=== PATIENT | male | born 1995 | race Caucasian/White ===

== ENCOUNTER 2017-06-11 15:54 | Emergency (ER) | payer OTHER ==
[~2017-06-11] VITALS: Ht 177.8 cm; Wt 65.8 kg
[~2017-06-11 15:54] MED LIST: ALEVE220 M1 PO; DOXYCYCLINE HY100 MG PO; NORCO 5-325 TA1 EACH PO; PERCOCET 5-3251 EACH PO
[2017-06-11] MEDS ORDERED: BUSPIRONE HCL15 MG PO (16:09)
[2017-06-11] MEDS ORDERED: NORCO 5-325 TA1 EACH PO (16:57)
[2017-06-11] MEDS ORDERED: AUGMENTIN 875-1 EACH PO (16:57)
== END 2017-06-11 17:33 | disposition home or self-care (01) ==
LOC: ED 15:54
PROC: 0HQDXZZ Repair Right Lower Arm Skin, External Approach (ICD-10-PCS; principal; 2017-06-11)
DX: S51.811A Laceration without foreign body of right forearm, initial encounter (principal); F17.200 Nicotine dependence, unspecified, uncomplicated; Z79.899 Other long term (current) drug therapy; W25.XXXA Contact with sharp glass, initial encounter; Z88.5 Allergy status to narcotic agent; Z90.81 Acquired absence of spleen
CPT/HCPCS: 12004; 99283

== ENCOUNTER 2017-06-12 11:00 | Emergency (ER) | payer OTHER ==
[~2017-06-12] VITALS: Ht 177.8 cm; Wt 65.8 kg
[~2017-06-12 11:00] MED LIST changes: +AUGMENTIN 875-1 EACH PO; +BUSPIRONE HCL15 MG PO
== END 2017-06-12 11:24 | disposition home or self-care (01) ==
LOC: ED 11:00
DX: Z00.8 Encounter for other general examination (principal)

== ENCOUNTER 2017-06-13 17:36 | Emergency (ER) | payer OTHER | END 2017-06-13 20:00 | disposition short-term general hospital (02) | LOC: ED 17:36 | DX: S06.5X0A Traumatic subdural hemorrhage without loss of consciousness, initial encounter (principal); S00.01XA Abrasion of scalp, initial encounter; F17.200 Nicotine dependence, unspecified, uncomplicated; Z88.5 Allergy status to narcotic agent; Z79.899 Other long term (current) drug therapy; V89.2XXA Person injured in unspecified motor-vehicle accident, traffic, initial encounter | CPT/HCPCS: 70450; 71010; 73000; 80053; 81001; 85025; 85610; 99285; G0480 ==

== ENCOUNTER 2018-05-09 13:37 | Emergency (ER) | payer BC ==
[~2018-05-09] VITALS: Ht 177.8 cm; Wt 59.4 kg
== END 2018-05-09 16:30 | disposition home or self-care (01) ==
LOC: ED 13:37
DX: S09.90XA Unspecified injury of head, initial encounter (principal); S00.81XA Abrasion of other part of head, initial encounter; F17.200 Nicotine dependence, unspecified, uncomplicated; Z88.5 Allergy status to narcotic agent; Y04.2XXA Assault by strike against or bumped into by another person, initial encounter
CPT/HCPCS: 70450; 99284

== ENCOUNTER 2018-06-02 01:58 | Emergency (ER) | payer BC ==
[~2018-06-02] VITALS: Ht 177.8 cm; Wt 65.8 kg
== END 2018-06-02 02:33 | disposition home or self-care (01) ==
LOC: ED 01:58
DX: S61.211A Laceration without foreign body of left index finger without damage to nail, initial encounter (principal); F17.200 Nicotine dependence, unspecified, uncomplicated; Z79.899 Other long term (current) drug therapy; W26.0XXA Contact with knife, initial encounter
CPT/HCPCS: 99282

== ENCOUNTER 2018-08-14 12:52 | Emergency (ER) | payer BC ==
[~2018-08-14] VITALS: Ht 177.8 cm; Wt 65.8 kg
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
--- OUTSIDE RECORDS SUMMARY | ~2018-08-14 | XMS | Clinical Summary ---
Demographics + + + | Address | [address] | | | [place] [address] | + + + | Home Phone | | + + + | Preferred Language | Unknown | + + + | Marital Status | Single | + + + | Buddhism Affiliation | Unknown | + + + | Race | Unknown | + + + | Ethnic Group | Unknown | + + + Author + + + | Author | [facility] | + + + | Organization | [facility] | + + + | Address [...] Team Providers + +------+ + | Care Book Packer Name | Role | Phone | + [...] + | [employer] | [employer] | [id number] | | | | | | WORK | | | | | + +--------+ +------+-------+ + | MAGDALENA - S - | TRICAR | [id number] | | | [address] [address] | | | [place] | | | | [place], [place] | | | LIFE | | | | [phone] | + +--------+ +------+-------+ + + +--------+ [...] Y | al/Fam | | 1994 | [phone] | [place] | | | remedios | | | [phone] | + +--------+ +--------+ + +
== END 2018-08-14 14:13 | disposition home or self-care (01) ==
LOC: ED 12:52
PROC: 0HQFXZZ Repair Right Hand Skin, External Approach (ICD-10-PCS; principal; 2018-08-14)
DX: S61.212A Laceration without foreign body of right middle finger without damage to nail, initial encounter (principal); W22.8XXA Striking against or struck by other objects, initial encounter; F17.200 Nicotine dependence, unspecified, uncomplicated; Z88.5 Allergy status to narcotic agent
CPT/HCPCS: 12001; 99282

== ENCOUNTER 2018-12-26 12:58 | Emergency (ER) | payer OTHER ==
[~2018-12-26] VITALS: Ht 177.8 cm; Wt 63.5 kg
== END 2018-12-26 14:39 | disposition home or self-care (01) ==
LOC: ED 12:58
DX: S00.03XA Contusion of scalp, initial encounter (principal); F17.200 Nicotine dependence, unspecified, uncomplicated; Z88.5 Allergy status to narcotic agent; V49.9XXA Car occupant (driver) (passenger) injured in unspecified traffic accident, initial encounter
CPT/HCPCS: 70450; 80053; 83605; 85025; 96374; 99284-25; G0480; J2405

== ENCOUNTER 2020-03-17 15:33 | Emergency (ER) | payer OTHER ==
[~2020-03-17] VITALS: Ht 180.3 cm; Wt 63.5 kg
== END 2020-03-18 10:06 | disposition home or self-care (01) ==
LOC: ED 15:33
DX: S51.812A Laceration without foreign body of left forearm, initial encounter (principal); F15.129 Other stimulant abuse with intoxication, unspecified; R45.851 Suicidal ideations; Y33.XXXA Other specified events, undetermined intent, initial encounter
CPT/HCPCS: 12004; 70450; 71045; 72125; 72128; 72131; 72170; 72192; 80053; 81001; 85025; 99285-25; G0480; J2405; J3010; J7030; J7040

== ENCOUNTER 2022-02-02 10:49 | Emergency (ER) | payer OTHER ==
[~2022-02-02] VITALS: Ht 180.3 cm; Wt 60.3 kg
[~2022-02-02 10:49] MED LIST changes: +BUPRENORPHINE-1 EACH SL; +BUPROPION XL300 MG PO; +METHYLPHENIDATE10 MG PO
--- OUTSIDE RECORDS SUMMARY | 2022-02-02 10:52 | XMS ---
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 Care Guidelines exist for the following facilities: [facility] ( 03/20/2020 ) Maddie VISIT COUNT (12 MO.) [address] [facility] TOTAL 2 NOTE: Visits indicate total known visits. ED/UCC VISIT TRACKING (12 MO.) 02/02/2022 10:50 [facility] [place] TYPE: Emergency COMPLAINT: - LT RIB PAIN/ALTERCATION 10/04/2021 08:48 [facility] [place] TYPE: Emergency COMPLAINT: - ALTERED MENTAL STATUS INPATIENT VISIT TRACKING (12 MO.) 10/04/2021 08:49 [facility] TYPE: Observation COMPLAINT: - ACUTE TOXIC ENCEPHALOPATHY DIAGNOSES: - Poisoning by benzodiazepines, intentional self-harm, initial encounter - Poisoning by methadone, intentional self-harm, initial encounter - OTHER TOXIC ENCEPHALOPATHY - Nicotine dependence, cigarettes, uncomplicated - Allergy status to narcotic agent [email or web address]
== END 2022-02-02 11:28 | disposition home or self-care (01) ==
LOC: ED 10:49
DX: R51.9 Headache, unspecified (principal); M79.603 Pain in arm, unspecified; Y09 Assault by unspecified means; F17.200 Nicotine dependence, unspecified, uncomplicated; Z88.5 Allergy status to narcotic agent; Z79.899 Other long term (current) drug therapy
CPT/HCPCS: 99284

== ENCOUNTER 2022-02-04 15:27 | Emergency (ER) | payer OTHER ==
[~2022-02-04] VITALS: Ht 180.3 cm; Wt 64.5 kg
--- OUTSIDE RECORDS SUMMARY | 2022-02-04 15:30 | XMS ---
PreManage Notification: DELONTE SOTO Security Copy Director Events No recent Security Events currently on file CRITERIA MET - [facility] - 2 Visits in 30 Days - [facility] CARE PROVIDERS There are no care providers on record at this time. Care Guidelines exist for the following facilities: [facility] ( 03/20/2020 ) Maddie VISIT COUNT (12 MO.) 3 [facility] TOTAL 3 NOTE: Visits indicate total known visits. ED/UCC VISIT TRACKING (12 MO.) 02/04/2022 15:28 [facility] TYPE: Emergency COMPLAINT: - HEAD PAIN/INJURY 02/02/2022 10:50 [facility] TYPE: Emergency [...] uncomplicated - Allergy status to narcotic agent [email or web address]
[2022-02-04] MEDS ORDERED: AMOXICILLIN500 MG PO (18:20)
== END 2022-02-04 18:50 | disposition home or self-care (01) ==
LOC: ED 15:27
DX: J32.9 Chronic sinusitis, unspecified (principal); F07.81 Postconcussional syndrome; F15.10 Other stimulant abuse, uncomplicated; F17.200 Nicotine dependence, unspecified, uncomplicated; Z79.899 Other long term (current) drug therapy; Z88.5 Allergy status to narcotic agent
CPT/HCPCS: 70450; 72125; 99284-25

== ENCOUNTER 2022-02-12 09:45 | Emergency (ER) | payer OTHER ==
[~2022-02-12] VITALS: Ht 180.3 cm; Wt 64.4 kg
[~2022-02-12 09:45] MED LIST changes: +AMOXICILLIN500 MG PO
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
--- NOTE | 2022-02-13 11:43 | EKG ---
[facility] [address] [place] [address] Signed Normal sinus rhythm Normal ECG When compared with ECG of 04-OCT-2021 09:29, QT has lengthened Confirmed by LENORE BAJWA MD ([id number]) on 02/13/2022 11:43:39 AM Electronically Signed By: LENORE BAJWA MD 02/13/22 1143 PATIENT NAME: DELONTE SOTO Electrocardiogram DATE OF : [birth year] PHYSICIAN: LENORE BAJWA MD REPORT #: [id number] REPORT IS CONFIDENTIAL AND NOT TO BE RELEASED WITHOUT AUTHORIZATION
== END 2022-02-13 10:34 | disposition home or self-care (01) ==
LOC: ED 09:45
DX: R41.82 Altered mental status, unspecified (principal); S00.83XA Contusion of other part of head, initial encounter; F19.90 Other psychoactive substance use, unspecified, uncomplicated; F17.200 Nicotine dependence, unspecified, uncomplicated; Z88.5 Allergy status to narcotic agent; Z79.899 Other long term (current) drug therapy; W19.XXXA Unspecified fall, initial encounter; W22.8XXA Striking against or struck by other objects, initial encounter; Y92.240 Courthouse as the place of occurrence of the external cause
CPT/HCPCS: 36415; 70450; 70486; 72125; 80053; 81001; 85025; 93005; 93010; 99285-25; J7030

== ENCOUNTER 2023-06-29 18:57 | Emergency (ER) | payer OTHER | END 2023-06-29 21:11 | disposition home or self-care (01) | LOC: ED 18:57 | DX: R56.9 Unspecified convulsions (principal); F17.200 Nicotine dependence, unspecified, uncomplicated; Z88.5 Allergy status to narcotic agent; Z79.899 Other long term (current) drug therapy ==

== ENCOUNTER 2023-09-23 21:18 | Emergency (ER) | payer OTHER ==
[~2023-09-23] VITALS: Ht 180.3 cm; Wt 68.0 kg
[~2023-09-23 21:18] MED LIST changes: +ESTRADIOL20 MG/1 ML IM; +KEPPRA500 MG PO; +SPIRONOLACTONE100 MG NG; +VYVANSE10 MG PO; +VYVANSE40 MG PO
--- OUTSIDE RECORDS SUMMARY | 2023-09-23 21:20 | XMS ---
PreManage Notification: DELONTE SOTO Security Pig Machine Crane Operator Events No recent Security Events currently on file CRITERIA MET - [facility] CARE PROVIDERS -, [place] Dentist: [facility] PHONE: [phone] -, [facility] Dentist: Manager Nursing [facility] PHONE: [phone] Care Guidelines exist for the following facilities: [facility] ( 03/20/2020 ) Maddie VISIT COUNT (12 MO.) 2 [facility] TOTAL 2 NOTE: Visits indicate total known visits. ED/UCC VISIT TRACKING (12 MO.) 09/23/2023 21:19 [facility] TYPE: Emergency COMPLAINT: - SEIZURE 06/29/2023 18:57 [facility] TYPE: Emergency COMPLAINT: - SEIZURE DIAGNOSES: - Allergy status to narcotic agent - Nicotine dependence, unspecified, uncomplicated - Other chcf (current) drug therapy - Unspecified convulsions INPATIENT VISIT TRACKING (12 MO.) No inpatient visits to display in this time frame [email or web address]
[2023-09-23 21:36] LABS: BASOPHILS 0.8 % (0-2); EOSINOPHILS 0.7 % (0-6); HEMATOCRIT 40.4 % (35.0-50.0); HEMOGLOBIN 13.5 g/dL (12.0-18.0); LYMPHOCYTES 24.2 % (24-44); MCH 31.9 (27-36); MCHC 33.3 g/dl (30-36); MCV 95.8 fl (81-99); NEUTROPHILS 63.3 % (39-80); PLATELET COUNT 356 K/uL (140-440); RBC 4.22 M/ul (4.3-5.7); RDW 13.1 (10.5-15.0)
[2023-09-23 21:51] LABS: ALBUMIN 3.9 g/dL (3.4-5.0); ALBUMIN/GLOBULIN RATIO 1.15 (1.1-2.4); ALCOHOL, MEDICAL <3 ng/dL (<3); ALKALINE PHOSPHATASE 49 U/L (46-116); ALT (SGPT) 14 U/L (14-59); ANION GAP 13.1 (7-21); AST (SGOT) 13 U/L (15-37); BILIRUBIN, TOTAL 0.6 ng/dL (0.2-1.0); BUN/CREATININE RATIO 11.95 (6.0-28.6); CALCIUM 8.5 mg/dL (8.5-10.1); CARBON DIOXIDE 25 mmol/L (21-32); CHLORIDE 102 mmol/L (98-107); CREATININE, SERUM 0.92 mg/dL (0.70-1.30); GLOMERULAR FILTRATION RATE,EST 115 mL/min (>60); POTASSIUM 4.1 mmol/L (3.5-5.1); PROTEIN, TOTAL 7.3 g/dL (6.4-8.2); UREA NITROGEN 11 mg/dL (7-18)
[2023-09-23 23:23] LABS: BILIRUBIN, URINE NEGATIVE (negative); BLOOD/HGB, URINE NEGATIVE (Negative); KETONE, URINE SMALL (Negative); LEUK ESTERASE, URINE NEGATIVE (negative); NITRITE, URINE NEGATIVE (negative)
[2023-09-23 23:37] LABS: AMPHETAMINES, URINE POSITIVE (NEGATIVE); BARBITURATES, URINE NEGATIVE (NEGATIVE); BENZODIAZEPINE, URINE NEGATIVE (NEGATIVE); BUPRENORPHINE, URINE NEGATIVE (NEGATIVE); CANNABINOID, URINE POSITIVE (NEGATIVE); COCAINE, URINE NEGATIVE (NEGATIVE); ECSTASY, URINE POSITIVE (NEGATIVE); FENTANYL, URINE NEGATIVE (NEGATIVE); METHADONE, URINE NEGATIVE (NEGATIVE); OPIATES, URINE NEGATIVE (NEGATIVE); OXYCODONE, URINE NEGATIVE (NEGATIVE); PHENCYCLIDINE, URINE NEGATIVE (NEGATIVE)
[2023-09-23 23:40] VITALS: BP 115/79
== END 2023-09-23 23:42 | disposition home or self-care (01) ==
LOC: ED 21:18
PROVIDERS: Internal Medicine
DX: R56.9 Unspecified convulsions (principal); F17.200 Nicotine dependence, unspecified, uncomplicated; Z88.5 Allergy status to narcotic agent; Z79.899 Other long term (current) drug therapy; Z87.890 Personal history of sex reassignment
CPT/HCPCS: 36415; 70450; 70486; 71045; 72125; 80053; 80177; 80307; 81003; 85025; G0480; J1953; J7121

== ENCOUNTER 2024-11-27 20:03 | Emergency (ER) | payer OTHER ==
[~2024-11-27] VITALS: Ht 180.3 cm; Wt 64.9 kg
--- OUTSIDE RECORDS SUMMARY | ~2024-11-27 | XMS | Continuity of Care Document ---
Demographics + + + | Address | [address] | | | [place] [address] | + + + | Preferred Language | Unknown | + + + | Marital Status | | + + + | Samaritan Affiliation | Unknown | + + + | Race | White | + + + | Ethnic Group | Unknown | + + + Author + + + | Author | [facility] | + + + | Organization | [facility] | + + + | Address | [address] | | | [place] [address] | + + + | Phone | | + + + Care Team Providers + + + + | Care Fire Equipment Inspector Helper Name | Role | Phone | + + + + Unavailable | Unavailable | + + + + Allergies No information. Encounters No information. Functional Status No information. Immunizations No information. Medications No information. Problems + + + + | date | description | facility | + + + + | 2024-10-25 11:12:07 | Other stimulant | [facility] | | | dependence, uncomplicated | | | | (HCC) | | + + + + | 2024-10-25 11:12:07 | Major depressive disorder, | [facility] | | | recurrent, in full | | | | remission (HCC) | | + + + + | 2024-10-25 11:12:07 | Transsexualism | [facility] | + + + + | 2024-10-25 11:12:07 | Attention-deficit | [facility] | | | hyperactivity disorder, | | | | combined type | | + + + + | 2024-10-25 12:40:07 | Other stimulant | [facility] | | | dependence, uncomplicated | | | | (HCC) | | + + + + | 2024-10-25 12:40:07 | Major depressive disorder, | [facility] | | | recurrent, in full | | | | remission (HCC) | | + + + + | 2024-10-25 12:40:07 | Transsexualism | [facility] | + + + + | 2024-10-25 12:40:07 | Attention-deficit | [facility] | | | hyperactivity disorder, | | | | combined type | | + + + + Procedures No information. Results/Labs No information. Social History +--------+ + + | date | description | facility | +--------+ + + Vital Signs No information."
[~2024-11-27 20:03] MED LIST changes: +BUSPIRONE HCL10 MG PO
[2024-11-27] MEDS ORDERED: TRAMADOL HCL50 MG PO (20:16)
[2024-11-27] MEDS ORDERED: AMOX TR-K CLV1 EAC1 PO (20:16)
[2024-11-27] MEDS ORDERED: KETOROLAC TROMETHAMINE 60 MG/2 ML VIAL IM ONE (21:15)
[2024-11-27 22:11] VITALS: BP 112/72
== END 2024-11-27 22:11 | disposition home or self-care (01) ==
LOC: ED 20:03
DX: G89.18 Other acute postprocedural pain (principal); F17.200 Nicotine dependence, unspecified, uncomplicated; Z98.890 Other specified postprocedural states; Z79.899 Other long term (current) drug therapy
CPT/HCPCS: 96372; 99283; J1885